=== PATIENT | female | born 1950 | race Caucasian/White ===

== ENCOUNTER 2022-06-01 11:23 | Outpatient (CLI) | payer OTHER ==
[~2022-06-01 11:23] MED LIST: CATAFLAM PO; CATAFLAM50 MG PO; CHLORTHALIDONE PO; CLONAZEPAM1 MG PO; LEVAQUIN750 MG PO; TYLENOL ARTHRI650 MG PO; ULTRACET PO; UNITHROID200 MCG PO
== END 2022-06-01 11:27 | disposition home or self-care (01) ==
LOC: RAD 11:23
PROVIDERS: ATTEND Family Medicine
DX: M25.551 Pain in right hip (principal); M25.552 Pain in left hip

== ENCOUNTER 2022-07-05 02:15 | Inpatient (IN) | payer OTHER ==
[~2022-07-05] VITALS: Ht 165.1 cm; Wt 158.8 kg
[2022-07-05] MEDS ORDERED: CLONAZEPAM2 MG (14:25)
[2022-07-05] MEDS ORDERED: LOSARTAN POTASS50 MG (14:25)
[2022-07-05] MEDS ORDERED: PRAVASTATIN SOD20 MG (14:25)
[2022-07-05] MEDS ORDERED: PREGABALIN75 MG (14:25)
[2022-07-05] MEDS ORDERED: GABAPENTIN300 M2 (14:25)
[2022-07-05] MEDS ORDERED: LEVOTHYROXINE175 MCG (14:25)
[2022-07-05] MEDS ORDERED: LEVOTHYROXINE200 MCG (14:26)
[2022-07-05] MEDS ORDERED: STIOLTO RESPIMAT4 GM (14:26)
== END 2022-07-10 20:58 | disposition home or self-care (01) | DRG 189 ==
LOC: ER 02:15 → MEDI 13:48
PROVIDERS: ADMIT Internal Medicine; ATTEND Internal Medicine
PROC: B32TZZZ Computerized Tomography (CT Scan) of Left Pulmonary Artery (ICD-10-PCS; principal; 2022-07-05)
PROC: B32SZZZ Computerized Tomography (CT Scan) of Right Pulmonary Artery (ICD-10-PCS; 2022-07-05)
PROC: B24BYZZ Ultrasonography of Heart with Aorta using Other Contrast (ICD-10-PCS; 2022-07-05)
PROC: B54DZZZ Ultrasonography of Bilateral Lower Extremity Veins (ICD-10-PCS; 2022-07-05)
PROC: 3E0F7GC Introduction of Other Therapeutic Substance into Respiratory Tract, Via Natural or Artificial Opening (ICD-10-PCS; 2022-07-09)
DX: J96.91 Respiratory failure, unspecified with hypoxia (principal); I26.99 Other pulmonary embolism without acute cor pulmonale; Z68.43 Body mass index [BMI] 50.0-59.9, adult; R55 Syncope and collapse; E66.01 Morbid (severe) obesity due to excess calories; E03.9 Hypothyroidism, unspecified; J44.9 Chronic obstructive pulmonary disease, unspecified; R91.8 Other nonspecific abnormal finding of lung field; R41.82 Altered mental status, unspecified
CPT/HCPCS: 71275